=== PATIENT | male | born 1945 | race Two or more races ===

== ENCOUNTER 2022-04-17 07:17 | Outpatient (CLI) | payer OTHER, BC | END 2022-04-17 07:22 | disposition home or self-care (01) | LOC: NUCLEAR 07:17 | PROVIDERS: ATTEND Podiatrist | DX: M14.60 Charcot's joint, unspecified site (principal) | CPT/HCPCS: 78315; A9503 ==

== ENCOUNTER 2022-08-07 19:53 | Emergency (ER) | payer OTHER ==
[~2022-08-07] VITALS: Ht 175.3 cm; Wt 73.9 kg
[2022-08-07] MEDS ORDERED: ALTACE10 MG PO (20:05)
[2022-08-07] MEDS ORDERED: GLUMETZA500 MG PO (20:05)
[2022-08-07] MEDS ORDERED: SIMVASTATIN5 MG PO (20:06)
[2022-08-07] MEDS ORDERED: DILTIAZEM ER300 MG PO (20:06)
[2022-08-07] MEDS ORDERED: VAZALORE81 MG PO (20:06)
[2022-08-07] MEDS ORDERED: TAMS0.4C PO (20:07)
[2022-08-07] MEDS ORDERED: PEPCID AC20 MG PO (22:09)
== END 2022-08-07 22:13 | disposition home or self-care (01) ==
LOC: ER 19:53
DX: R10.13 Epigastric pain (principal); I10 Essential (primary) hypertension; E11.9 Type 2 diabetes mellitus without complications

== ENCOUNTER 2022-09-03 14:39 | Outpatient (CLI) | payer OTHER ==
[~2022-09-03 14:39] MED LIST: ALTACE10 MG PO; DILTIAZEM ER300 MG PO; GLUMETZA500 MG PO; PEPCID AC20 MG PO; SIMVASTATIN5 MG PO; TAMS0.4C PO; VAZALORE81 MG PO
== END 2022-09-03 14:52 | disposition home or self-care (01) ==
LOC: RAD 14:39
PROVIDERS: ATTEND Internal Medicine Pulmonary Disease
DX: J45.51 Severe persistent asthma with (acute) exacerbation (principal)

== ENCOUNTER 2022-09-09 09:23 | Emergency (ER) | payer OTHER, BC ==
[~2022-09-09] VITALS: Ht 175.3 cm; Wt 72.6 kg
[2022-09-09] MEDS ORDERED: LATANOPROST (09:55)
== END 2022-09-09 15:32 | disposition home or self-care (01) ==
LOC: ER 09:23
DX: R53.83 Other fatigue (principal); J45.909 Unspecified asthma, uncomplicated; F32.89 Other specified depressive episodes; E11.9 Type 2 diabetes mellitus without complications; Z79.84 Long term (current) use of oral hypoglycemic drugs; Z20.822 Contact with and (suspected) exposure to COVID-19